=== PATIENT | female | born 1975 | race Hispanic/Latino ===

== ENCOUNTER 2025-05-06 00:55 | Emergency (ER) | payer OTHER ==
[~2025-05-06] VITALS: Ht 157.5 cm; Wt 82.1 kg
[2025-05-06] MEDS ORDERED: AMOX-426 PO (02:03)
--- NOTE | 2025-05-06 02:03 | ERN ---
ED Note History of Present Illness Stated Complaint: C/O DOG BITE TO LEFT LOWER LEG, AND TO RT ARM Chief Complaint: Animal Bite Time Seen by MD: 01:05 Dictation: This is a very pleasant 49-year-old female who presented to the emergency room for evaluation of a dog bite that happened about an hour to hours ago. Patient stated that they went to [place] to visit the sister and found a stray dog which was extremely emaciated. They bought bowls and fed the dog and gave water. Patient checked on the dog since Monday. Apparently today as the patient picked up the dog's bowl to fill it with water, the dog immediately jumped and attack the patient and bit her on left leg polo area as well as extensor aspect of her right forearm. After she reached home she realized that there was some bleeding from the left leg area in the car and she was concerned and came into the ER for further evaluation. The dog's vaccination status is unknown. Temperature 97.9 pulse 67 respirations 20 blood pressure 175/83 with a pulse oximetry of 98% on room air Chronic medical problems include hypertension and history of gastric bypass surgery many years ago. Allergies: Coded Allergies: No Known Allergies (Unverified Allergy, Unknown, 05/06/25) Past Medical History Past Medical History: Hypertension Surgical History: Appendectomy, Hysterectomy Surgical History Other: GASTRIC BYPASS Family History: Negative Social History: Negative History: Not Applicable RN Note Reviewed/Agreed w/PFSH: Yes Review of System Dictation Constitutional: Negative for fever,chills, and weight loss Eyes: Negative for injury, pain,redness, and discharge ENT: Negative for injury,pain or swelling Cardiovascular: Negative for chest pain, palpitations, and edema Respiratory: Negative for shortness of breath, cough, and wheezing, Abdomen/GI: Negative for abdominal pain, nausea, vomiting, diarrhea, and constipation Back: Negative for injury and pain : Negative for injury, bleeding and discharge MS/Extremity: Negative for injury and deformity Skin: Negative for rash, . Positive for dog bite in the left lower extremity anterior polo area associated with pain. He also reported a small bite in the right forearm Neuro: Negative for headache, weakness, numbness, tingling, and seizure Psych: Negative for suicide ideation, homicidal ideation, and hallucinations Initial Vital Sign VS Vital Signs Date Time Temp Pulse Resp B/P (MAP) Pulse Ox O2 Delivery O2 Flow Rate FiO2 05/06/25 00:59 97.9 67 20 175/83 98 Room Air Physical Exam Dictation General: awake, alert, NAD Head/Face: Normocephalic, atraumatic Eyes: PERRL, EOMI, vision at baseline ENT: oral cavity clear, TMs clear, no signs of infection Neck: Trachea midline, supple, no nuchal rigidity Cardiovascular: RRR, normal S1/S2, No MRGs, no JVD Respiratory: CTAB, no respiratory distress, No rales or wheezes Abdomen: Soft, non-tender, non-distended, normal bowel sounds, no guarding or rebound. Skin: Warm, dry, normal turgor, no rash left lower extremity anterior polo area less than 2 mm dog bite with some fresh oozing noted the surrounding area is very ecchymotic. There was also an additional satellite area of a small puncture wound adjacent to the initial bite. Left forearm extensor surface has a very small puncture wound as well with no active bleeding erythema or induration. MS/Extremity: Pulses equal, no cyanosis, neurovascular intact, FROM Neuro: COAx4, GCS 15, strength 5/5, CN 2-12 intact, normal cerebellar exam, normal gait, Psych: Normal behavior, mood, and affect normal Extremities-trace edema without any palpable cords, Homans sign is negative ED Course ED Course Orders Procedure Category Date Status Time Tetanus,Diphtheria PHA 05/06/25 Complete Tox [Adult] (Diphther 01:30 Current Medications Medications (Trade) Dose Ordered Sig/Zofia Route PRN Reason Start Time Stop Time Status Last Admin Dose Admin Tetanus/ Diphtheria Toxoids Adsorbed (DiphthERIA-teTANUS TOXOID [ADULT]/ DECAVAC) 0.5 ml ONCE ONCE IM 05/06/25 01:30 05/06/25 01:32 DC 05/06/25 01:30 Vital Signs Date Time Temp Pulse Resp B/P (MAP) Pulse Ox O2 Delivery O2 Flow Rate FiO2 05/06/25 00:59 97.9 67 20 175/83 98 Room Air Medical Decision Making MDM Differential diagnosis: Cellulitis, abscess, tenosynovitis, sepsis, noninfectious trauma, neurovascular damage This is a very pleasant 49-year-old female who presented to the emergency room for evaluation of a dog bite that happened about an hour to hours ago. Patient stated that they went to [place] to visit the sister and found a stray dog which was extremely emaciated. They bought bowls and fed the dog and gave water. Patient checked on the dog since Monday. Apparently today as the patient picked up the dog's bowl to fill it with water, the dog immediately jumped and attack the patient and bit her on left leg polo area as well as extensor aspect of her right forearm. After she reached home she realized that there was some bleeding from the left leg area in the car and she was concerned and came into the ER for further evaluation. The dog's vaccination status is un known. Temperature 97.9 pulse 67 respirations 20 blood pressure 175/83 with a pulse oximetry of 98% on room air Chronic medical problems include hypertension and history of gastric bypass surgery many years ago. Patient will be given tetanus shot, and local wound cleansing thoroughly and wound dressing. In view of risk of pasteurella infections, a dose of Augmentin we will be given and patient will be discharged with outpatient antibiotic therapy. The dog's vaccination status is not known in the [facility] we will be notified by the nursing Rationale: Tests considered and ordered secondary to shared decision making include: None Previous outside records reviewed: Old ER visits. Risk of complication and/or morbidity or mortality of patient management: None Medications-Per medication reconciliation Need for hospitalization: Patient does not meet criteria for hospitalization. Need for emergency major/minor surgery: No There are no social concerns with this patient. Prescription drug management Prescriptions will include symptomatic care Patient's prior external medical records from other ER visits were reviewed by me as indicated. Prior testing and results from previous visits were reviewed. Prior tests were taken into account with medical decision making and resource utilization, independent historian/historians were used to obtain complete medical history. I independently interpreted the test that were performed, results were reviewed by me and considered findings on radiology if ordered. Medical management and examination interpretation discussions were had by me with other qualified healthcare professionals as indicated for the patient's care. Problem List Problem List: (1) Dog bite of left lower leg (2) Dog bite of right forearm (3) Puncture wound of left leg excluding thigh DX & DISP Disposition: Discharge Departure Impression: Primary Impression: Dog bite of left lower leg Additional Impressions: Dog bite of right forearm, Puncture wound of left leg excluding thigh Condition: Stable Scripts Amoxicillin/Potassium Clav (Augmentin 500-125 Tablet) 500 Mg-125 Mg Tablet 1 TAB PO BID for 10 Days, #20 TAB 0 Refills Prov: LISA ABEL MD 05/06/25 Additional Instructions: Patient and the caregiver have been informed of all the diagnostic tests and the imaging conducted during the today's visit to the emergency room and has verbalized understanding of the results I have personally reviewed and interpreted all diagnostic exams performed here in the ER today as well as the vital signs documented by the nursing staff. The patient is now being discharged to home and should follow up with the primary care physician or the specialist as directed by the ER staff. LISA ABEL MD May 06, 2025 02:03
--- NOTE | 2025-05-06 02:15 | NUR ---
SPOKE WITH CASPER FROM [facility] TO REPORT DOG BITE, MADE AWARE OF DOG BITE, PER [facility] DISPATCH FROM [facility], PATIENT NEEDS TO FOLLOW UP WITH ANIMAL CONTROL [phone] IN AM SINCE AFTER HOURS
--- NOTE | 2025-05-06 02:18 | NUR ---
WOUND CLEANSED WITH SKINTEGRITY ORDERED
[2025-05-06] MEDS: AMOX/CLAV 875/125MG TAB PO ONE (02:49)
[2025-05-06] MEDS: AMOX/CLAV 500/125MG TAB PO ONE (02:53)
[2025-05-06] MEDS ORDERED: AMOX/CLAV 875/125MG TAB PO ONE (03:00)
[2025-05-06 03:04] VITALS: BP 135/82; PULSE 64; RESP 18; TEMP 97.8; O2SAT 98
== END 2025-05-06 03:10 | disposition home or self-care (01) ==
LOC: EDH 00:55
DX: S51.851A Open bite of right forearm, initial encounter (principal); S81.852A Open bite, left lower leg, initial encounter; I10 Essential (primary) hypertension; Z90.49 Acquired absence of other specified parts of digestive tract; Z90.710 Acquired absence of both cervix and uterus; Z98.84 Bariatric surgery status; W54.0XXA Bitten by dog, initial encounter; Y93.89 Activity, other specified; Y92.89 Other specified places as the place of occurrence of the external cause; Y99.8 Other external cause status
CPT/HCPCS: 90471; 90714; 99283